=== PATIENT | male | born 1980 ===

== ENCOUNTER 2017-10-30 16:31 | Emergency (ER) | payer OTHER ==
[~2017-10-30] VITALS: Ht 180.3 cm; Wt 95.7 kg
[2017-10-30] MEDS ORDERED: CYCL10 PO (17:52)
== END 2017-10-30 17:56 | disposition home or self-care (01) ==
LOC: ER 16:31
DX: S39.012A Strain of muscle, fascia and tendon of lower back, initial encounter (principal); J06.9 Acute upper respiratory infection, unspecified; X50.9XXA Other and unspecified overexertion or strenuous movements or postures, initial encounter
CPT/HCPCS: 81000; 99283

== ENCOUNTER → 2021-03-03 | Outpatient (CLI) | payer OTHER ==
[~2021-03-03] MED LIST: CYCL10 PO
[2021-03-03 17:07] LABS: Source, Urine Clean Catch
[2021-03-03 17:19] LABS: Bacteria Not Seen /hpf; Red Blood Cells, Urine Rare /hpf (0-2); Squamous Epithelial Cells Few /hpf (Few); White Blood Cells, Urine 0-2 /hpf (0-5)
== END | disposition home or self-care (01) ==
LOC: LAB 17:00 → LAB SHORT 17:00
PROVIDERS: Physician Assistant
DX: R10.30 Lower abdominal pain, unspecified (principal)
CPT/HCPCS: 81015; 87086

== ENCOUNTER 2022-06-11 11:10 | Emergency (ER) | payer OTHER ==
[~2022-06-11] VITALS: Ht 180.3 cm; Wt 115.7 kg
== END 2022-06-11 12:47 | disposition home or self-care (01) ==
LOC: ER 11:10
DX: I10 Essential (primary) hypertension (principal); S40.022A Contusion of left upper arm, initial encounter; V00.311A Fall from snowboard, initial encounter; Y93.23 Activity, snow (alpine) (downhill) skiing, snowboarding, sledding, tobogganing and snow tubing
CPT/HCPCS: 93005; 93010